=== PATIENT | female | born 1965 | race Caucasian/White ===

== ENCOUNTER → 2019-02-21 | Outpatient (CLI) | payer MEDICARE ==
--- NOTE | 2019-02-21 11:16 | RAD ---
EXAM DESCRIPTION: Knee,Right Complete CLINICAL HISTORY: 53 years, Female, M25.561/M25.551. Pain. COMPARISON: None TECHNIQUE: Four views of the right knee FINDINGS: No acute displaced fracture or dislocation is seen. Severe tricompartmental knee joint osteoarthrosis is present with joint space narrowing, subchondral sclerosis and bulky marginal osteophyte formation. Joint space narrowing is more pronounced along the lateral knee and patellofemoral compartments. No significant knee joint effusion. The soft tissues are unremarkable. IMPRESSION: 1. No acute displaced fracture or dislocation. 2. Severe right knee osteoarthrosis. Electronically signed by: Fransico Silvestre DO 02/21/2019 11:14 AM CDT
--- NOTE | 2019-02-21 11:18 | RAD ---
EXAM DESCRIPTION: Pelvis CLINICAL HISTORY: 53 years Female, M25.561/M25.551. Pain. COMPARISON: None. FINDINGS/IMPRESSION: AP view of the pelvis demonstrate slight superior tilt of the left pelvis. No acute displaced fracture or dislocation seen. Mild bilateral hip osteoarthrosis present with superior joint space narrowing and subchondral sclerosis. Mild degenerative changes of the symphysis pubis. Electronically signed by: Fransico Silvestre DO 02/21/2019 11:16 AM CDT
== END ==
LOC: RAD 08:59
PROVIDERS: ATTEND Orthopaedic Surgery
DX: M17.11 Unilateral primary osteoarthritis, right knee (principal); M16.0 Bilateral primary osteoarthritis of hip

== ENCOUNTER → 2019-03-08 | Outpatient (CLI) | payer MEDICARE | LOC: LAB.O 10:31 | PROVIDERS: ATTEND Orthopaedic Surgery | DX: Z01.818 Encounter for other preprocedural examination (principal) ==

== ENCOUNTER 2019-04-06 05:47 | Inpatient (IN) | payer MEDICARE ==
--- NOTE | 2019-03-28 14:44 | RAD ---
EXAM DESCRIPTION: Chest,2 Views CLINICAL HISTORY: PREOP EXAM COMPARISON: Previous study November 15, 2012 TECHNIQUE: PA/lateral FINDINGS: Healed right rib fractures. Heart size is prominent with normal pulmonary vascularity. No pleural effusion or pneumothorax. Lungs are clear with no consolidating infiltrate. Lateral view shows intact sternum and T-spine. IMPRESSION: No acute process is identified in the chest. Electronically signed by: Vance Maceod MD 03/28/2019 2:42 PM CDT
--- NOTE | 2019-04-01 08:47 | HP ---
CHIEF COMPLAINT: Right knee pain. HISTORY OF PRESENT ILLNESS: Kemi is a 53-year-old female with a history of right knee pain that has been going on and getting progressively worse. She has had knee arthroscopy, injection and anti-inflammatories. Unfortunately, she is having pain on a daily basis that keeps her from doing her activities. She says it is sharp at times, but constantly a dull ache. Aggravating factors includes activities and alleviating factors include rest and occasional anti- inflammatories. Because of failure of conservative measures, she has requested operative intervention. After discussing the risks, benefits and alternatives to that, she has given informed consent. PAST SURGICAL HISTORY: Please see her recent list as she is unable to fully elaborate on those today. MEDICATIONS: 1. Buspirone. 2. Metformin. 3. Propranolol. 4. Losartan. 5. Glipizide. 6. Hydrochlorothiazide. 7. Lipitor. 8. Toujeo. 9. Duloxetine. 10. Prilosec. 11. Zofran. 12. Hydrocodone. 13. Melatonin. PAIN CONTRACT: Dr. Fermin. ALLERGIES: SULFA, MORPHINE. CODE STATUS: Full code. IMMUNIZATIONS: Up to date. SOCIAL HISTORY: The patient does not drink, smoke or use any illicit drugs. FAMILY HISTORY: None pertinent to today's complaint. REVIEW OF SYSTEMS: Negative except as indicated in the History of Present Illness. HEENT: The patient reports no symptoms. RESPIRATORY: The patient reports no symptoms. CARDIOVASCULAR: The patient reports no symptoms. GASTROINTESTINAL: The patient reports no symptoms GENITOURINARY: The patient reports no symptoms. MUSCULOSKELETAL: Negative except as noted in History of Present Illness. SKIN: The patient reports no symptoms. NEUROLOGIC: The patient reports no symptoms. PHYSICAL EXAMINATION: VITAL SIGNS: Blood pressure 122/72. Pulse 73. Height 5'7". Weight 220 pounds. MENTAL STATUS: The patient is awake, alert, and is able to give a good history and participate in the physical. The patient is oriented to person, place and time. SKIN: Normal tone and turgor. HEENT: Normocephalic, atraumatic. Pupils equal, round and reactive. Mucosal membranes are moist. NECK: Normal range of motion. No thyromegaly, no lymphadenopathy. CHEST: Normal respiratory excursion. CARDIAC: Regular rate and rhythm. No murmurs, rubs or gallops. MUSCULOSKELETAL: The bilateral upper extremities show full active range of motion without pain. She has intact sensation and they are warm and well perfused. There is no deformity, no swelling and no malalignment. There is no crepitus with range of motion. The left lower extremity shows no significant pain with range of motion. She has intact sensation throughout the extremity. She has no malalignment, no deformity. She has negative varus and valgus stress testing and negative anterior and posterior drawer test. She has full range of motion of the hip. The right lower extremity shows full range of motion of the hip. She has a valgus deformity at the knee. She has slight laxity in valgus stress testing. She has no anterior/posterior laxity. Sensation is intact. It is warm and well perfused. She has crepitus throughout her range of motion. She has a mild to moderate effusion today. She has full range of motion in both ankles, digits and she has no malalignment distal to that. RADIOLOGY: My interpretation of the x-rays show severe arthritis. AP standing shows valgus deformity. ASSESSMENT: 1. Severe arthritis. PLAN: The plan at this point is for total knee arthroplasty. We have discussed the risks, benefits, and alternatives to that and the patient has given informed consent. [id number]
[2019-04-06] MEDS ORDERED: VANCOMYCIN HCL INJ 1,000 MG VIAL IVPB ONE ×3 (05:52→19:50)
[2019-04-06] MEDS ORDERED: SODIUM CHL 0.9% 100ML MINI-BAG 100 ML IVPB ONE (05:52)
[2019-04-06] MEDS ORDERED: LACTATED RINGERS 1,000 ML ONE ×2 (05:52→10:29)
[2019-04-06] MEDS ORDERED: TRANEXAMIC ACID 1,000 MG/10 ML VIAL ONE ×2 (05:52→05:53)
[2019-04-06] MEDS ORDERED: SODIUM CHLORIDE 0.9% 250ML 250 ML ONE ×3 (05:53→19:50)
[2019-04-06] MEDS ORDERED: ceFAZolin SODIUM 1 GM VIAL ONE ×2 (05:53→06:33)
[2019-04-06] MEDS ORDERED: SODIUM CHLORIDE 0.9% 100ML 100 ML IVPB ONE (05:53)
[2019-04-06] MEDS ORDERED: KETAMINE HCL 50 MG/ML SYG IV ONE (06:32)
[2019-04-06] MEDS ORDERED: fentaNYL CITRATE INJ 50 MCG/ML AMP ONE (06:32)
[2019-04-06] MEDS ORDERED: MIDAZOLAM INJ 5 MG/5 ML VIAL ONE (06:32)
[2019-04-06] MEDS ORDERED: ACETAMINOPHEN IV 1000MG 100 ML ONE (06:32)
[2019-04-06] MEDS: ceFAZolin SODIUM 1 GM VIAL ONE ×2 (07:51→08:50)
[2019-04-06] MEDS: BUPIVACAINE 0.5% 30 ML VIAL INJ ONE ×2 (07:51→08:45)
[2019-04-06] MEDS: BUPIVACAINE LIPOSOME 13.3 MG/ML VIAL INJ ONE ×2 (07:51→08:45)
[2019-04-06] MEDS: VANCOMYCIN HCL INJ 1,000 MG VIAL IVPB ONE ×2 (07:51→08:50)
[2019-04-06] MEDS ORDERED: BUPIVACAINE 0.5% 30 ML VIAL INJ ONE (07:55)
[2019-04-06] MEDS ORDERED: ONDANSETRON INJ 4 MG/2 ML VIAL IV PRN (09:24)
[2019-04-06] MEDS ORDERED: ALUMINUM & MAGNESIUM HYDROXIDE 30 ML UD PO PRN (09:24)
[2019-04-06] MEDS ORDERED: ACETAMINOPHEN 325 MG TAB PO PRN (09:24)
[2019-04-06] MEDS ORDERED: SODIUM CHLORIDE 0.9% (FLUSH) 10 ML SYG IV PRN (09:24)
[2019-04-06] MEDS ORDERED: TRANEXAMIC ACID INJ 1,000 MG in SODIUM CHLORIDE 0.9% 100ML 100 ML IVPB ONE (09:24)
[2019-04-06] MEDS ORDERED: MORPHINE SULFATE INJ 10 MG/ML VIAL IM PRN (09:24)
[2019-04-06] MEDS ORDERED: PROMETHAZINE HCL INJ 25 MG in SODIUM CHLORIDE 0.9% 50ML 50 ML IVPB PRN (09:24)
[2019-04-06] MEDS ORDERED: ACETAMINOPHEN 500 MG TAB PO PRN (09:24)
[2019-04-06] MEDS ORDERED: DEX 5% W/NACL 0.45% 1000ML 1,000 ML IVS PRN (09:24)
[2019-04-06] MEDS ORDERED: PROMETHAZINE HCL INJ 12.5 MG in SODIUM CHLORIDE 0.9% 50ML 50 ML IVPB PRN (09:24)
[2019-04-06] MEDS ORDERED: BISACODYL SUPPOSITORY 10 MG PR PRN (09:24)
[2019-04-06] MEDS ORDERED: NALOXONE HCL INJ 0.4 MG/ML VIAL IV PRN (09:24)
[2019-04-06] MEDS ORDERED: BENZOCAINE-MENTH LOZ (CEPACOL) 1 EA LOZ MT PRN (09:24)
[2019-04-06] MEDS ORDERED: MORPHINE SULFATE INJ 10 MG/ML VIAL IV PRN (09:24)
[2019-04-06] MEDS ORDERED: MAGNESIUM HYDROXIDE 30 ML UD PO PRN (09:24)
[2019-04-06] MEDS ORDERED: ZOLPIDEM TARTRATE 5 MG TAB PO PRN (09:24)
[2019-04-06] MEDS ORDERED: HYDROcodone 5MG/APAP 325MG 1 EA TAB PO PRN (09:24)
[2019-04-06] MEDS ORDERED: HYDROmorphone PCA 0.2 MG/ML 1 BAG BAG IVPB SCH (09:30)
[2019-04-06] MEDS ORDERED: PROPOFOL 200 MG/20 ML VIAL IV ONE (10:00)
[2019-04-06] MEDS ORDERED: METOCLOPRAMIDE HCL INJ 10 MG/2 ML VIAL IV ONE (10:00)
[2019-04-06] MEDS ORDERED: MAGNESIUM SULFATE INJ 1 GM/2 ML VIAL IVPB ONE (10:00)
[2019-04-06] MEDS ORDERED: ceFAZolin SODIUM 1 GM VIAL IVPB ONE (10:00)
[2019-04-06] MEDS ORDERED: raNITIdine HCL INJ 25 MG/ML VIAL IV ONE (10:00)
[2019-04-06] MEDS ORDERED: DEXAMETHASONE INJ 10 MG/ML VIAL IV ONE (10:00)
[2019-04-06] MEDS ORDERED: PHENYLEPHRINE INJ 1ML 10 MG/ML VIAL IV ONE (10:00)
[2019-04-06] MEDS ORDERED: SODIUM CHLORIDE 0.9% 50 ML VIAL INJ ONE (10:00)
--- NOTE | 2019-04-06 10:03 | OP ---
DATE OF PROCEDURE: 04/06/19 PREOPERATIVE DIAGNOSIS: 1. Arthritis of the right knee. POSTOPERATIVE DIAGNOSIS: 1. Arthritis of the right knee. PROCEDURE: 1. Total knee arthroplasty. SURGEON: Cahpo Palacios MD. PEDORTHIST: Dexter Dykes CST, SA-C. ANESTHESIA: General anesthesia. COMPLICATIONS: None. FINDINGS: Severe arthritis of the knee. INDICATION: Ms. Santiago has a long history of severe knee pain. It has been getting progressively worse. Because of the pain and ongoing nature without relief with conservative measures, she has requested operative intervention. After discussing the risks, benefits and alternatives to that, the patient has given informed consent for total knee arthroplasty. PROCEDURE: The patient was brought to the Operating Room and placed in supine position. General anesthesia was induced and the patient's leg was sterilely prepped and draped. Following prepping and draping, an anterior incision with standard medial parapatellar approach was used. The distal femur was exposed and using an intramedullary guide, the distal femoral cut was made. The anterior, posterior, and chamfer cuts were then made. The ACL was transected and the tibia was subluxed. Following subluxation of the tibia, the proximal tibial cut was made using the intramedullary guide. Following that, the patella was everted and the patella was cut by about 9 mm. Trial components were placed. The knee was reduced and taken through a range of motion. The knee tracked well and there was no evidence of instability of the patellar component. There was no varus/valgus or anterior/posterior laxity. The trial components were removed and the bony surfaces were thoroughly irrigated. Following irrigation of the bony surfaces, the final components were cemented into place. All excess cement was removed and the remaining cement was allowed to cure. The knee was again taken through a range of motion. It was stable without any laxity and had excellent patellar tracking. The wound was then very thoroughly irrigated and closure was performed using PDS to approximate the arthrotomy followed by closure of the subcutaneous tissues with a combination of running and interrupted Monocryl sutures. Sterile dressing was placed. The patient was awoken from anesthesia and taken to Recovery. POSTOPERATIVE PLAN: The patient will be weight-bearing as tolerated on postoperative day 1. COMPONENTS: [place] Triathlon knee, size 4 femur, size 4 tibia, 31 mm patellar button. [facility][id number]
[2019-04-06] MEDS: IV SET AND CAP CHANGE INJ INJ SCH (12:51)
[2019-04-06] MEDS ORDERED: ceFAZolin SODIUM 2 GRAMS PREMI 50 ML IVPB ONE ×2 (16:19→19:49)
[2019-04-06] MEDS: HYDROcodone 10MG/APAP 325MG 1 EA TAB PO PRN ×2 (16:21→21:41)
[2019-04-06] MEDS: CYCLOBENZAPRINE HCL 10 MG TAB PO PRN (16:21)
[2019-04-06] MEDS: ceFAZolin SODIUM 2 GRAMS PREMI 2 GM in PREMIX BAG 1 BAG IVPB SCH ×2 (16:21→23:16)
[2019-04-06] MEDS ORDERED: CELECOXIB 100 MG CAP PO SCH (17:00)
[2019-04-06] MEDS: VANCOMYCIN HCL INJ 1,000 MG in SODIUM CHLORIDE 0.9% 250ML 250 ML IVPB SCH (18:59)
[2019-04-06] MEDS ORDERED: CLOPIDOGREL 75 MG TAB PO ONE (19:37)
[2019-04-06] MEDS ORDERED: ENOXAPARIN SODIUM 30 MG/0.3 ML SYG SUBCU ONE (19:42)
[2019-04-06] MEDS ORDERED: DEXTROSE 50% 25 GM/50 ML SYG IV PRN (19:53)
[2019-04-06] MEDS ORDERED: GLUCAGON INJ 1 MG VIAL SUBCU PRN (19:53)
[2019-04-06] MEDS ORDERED: busPIRone HCL 5 MG TAB ONE (20:19)
[2019-04-06] MEDS ORDERED: PROPRANOLOL HCL 20 MG TAB ONE ×2 (20:19→21:34)
[2019-04-06] MEDS ORDERED: metFORMIN HCL 500 MG TAB ONE (20:19)
[2019-04-06] MEDS ORDERED: glipiZIDE 5 MG TAB ONE (20:19)
[2019-04-06] MEDS ORDERED: SODIUM CHLORIDE 0.45% 1000ML 1,000 ML IVS ONE (20:22)
[2019-04-06] MEDS ORDERED: MELATONIN 3 MG TAB ONE (20:22)
[2019-04-06] MEDS ORDERED: SODIUM CHLORIDE 0.45% 1000ML 1,000 ML IVS PRN (20:36)
[2019-04-06] MEDS ORDERED: NON-FORMULARY MEDICATION 1 EA MIS (Metformin Hcl [Metformin Hcl] 1,000 MG) PO SCH (21:00)
[2019-04-06] MEDS ORDERED: MELATONIN PO SCH (21:00)
[2019-04-06] MEDS ORDERED: NON-FORMULARY MEDICATION 1 EA MIS (Glipizide [Glipizide] 10 MG) PO SCH (21:00)
[2019-04-06] MEDS ORDERED: NON-FORMULARY MEDICATION 1 EA MIS (Propranolol Hcl [Propranolol Hcl] 40 MG) PO SCH (21:00)
[2019-04-06] MEDS ORDERED: NON-FORMULARY MEDICATION 1 EA MIS (Buspirone Hcl [Buspirone Hcl] 10 MG) PO SCH (21:00)
[2019-04-06] MEDS: INSULIN LISPRO 100 UNITS/ML PEN SUBCU SCH (21:15)
[2019-04-06] MEDS: INSULIN GLARGINE 75 UNIT SC SCH (21:16)
[2019-04-06] MEDS: ATORVASTATIN 10 MG TAB PO SCH (21:33)
[2019-04-06] MEDS: DOCUSATE CALCIUM 240 MG CAP PO SCH (21:33)
[2019-04-06] MEDS: ENOXAPARIN SODIUM 30 MG/0.3 ML SYG SUBCU SCH (23:16)
[2019-04-06] MEDS: traMADol HCL 50 MG TAB PO PRN (23:30)
[2019-04-07] MEDS ORDERED: SODIUM CHLORIDE 0.9% 50ML 50 ML ONE ×2 (00:34→00:36)
[2019-04-07] MEDS ORDERED: PROMETHAZINE HCL INJ 25 MG/ML VIAL ONE (00:36)
[2019-04-07] MEDS: CYCLOBENZAPRINE HCL 10 MG TAB PO PRN ×2 (00:43→16:07)
[2019-04-07] MEDS ORDERED: HYDROmorphone HCL INJ 2 MG/ML VIAL IV ONE (00:48)
[2019-04-07] MEDS: HYDROcodone 10MG/APAP 325MG 1 EA TAB PO PRN ×4 (02:31→20:02)
[2019-04-07] MEDS: traMADol HCL 50 MG TAB PO PRN ×2 (05:32→17:53)
[2019-04-07] MEDS: VANCOMYCIN HCL INJ 1,000 MG in SODIUM CHLORIDE 0.9% 250ML 250 ML IVPB SCH (05:55)
[2019-04-07] MEDS: OMEPRAZOLE CAP 20 MG CAP PO SCH (07:01)
[2019-04-07] MEDS ORDERED: metFORMIN HCL 500 MG TAB ONE (07:01)
[2019-04-07] MEDS ORDERED: PROPRANOLOL HCL 20 MG TAB ONE (07:01)
[2019-04-07] MEDS ORDERED: glipiZIDE 5 MG TAB ONE (07:01)
[2019-04-07] MEDS ORDERED: busPIRone HCL 5 MG TAB ONE (07:02)
[2019-04-07] MEDS ORDERED: ceFAZolin SODIUM 2 GRAMS PREMI 50 ML IVPB ONE (07:03)
[2019-04-07] MEDS: INSULIN LISPRO 100 UNITS/ML PEN SUBCU SCH ×4 (07:10→21:07)
[2019-04-07] MEDS: ceFAZolin SODIUM 2 GRAMS PREMI 2 GM in PREMIX BAG 1 BAG IVPB SCH (08:12)
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
[2019-04-07] MEDS ORDERED: CLOPIDOGREL 75 MG TAB PO SCH (09:00)
[2019-04-07] MEDS: busPIRone HCL 5 MG TAB PO SCH ×2 (09:36→14:07)
[2019-04-07] MEDS: MAGNESIUM OXIDE 400 MG TAB PO SCH (09:36)
[2019-04-07] MEDS: PROPRANOLOL HCL 20 MG TAB PO SCH ×2 (09:37→21:05)
[2019-04-07] MEDS: DULoxetine HCL 30 MG CAP PO SCH (09:38)
[2019-04-07] MEDS: LOSARTAN POTASSIUM 100 MG TAB PO SCH (09:38)
[2019-04-07] MEDS: glipiZIDE 5 MG TAB PO SCH ×2 (09:38→15:57)
[2019-04-07] MEDS: metFORMIN HCL 500 MG TAB PO SCH ×2 (09:38→16:01)
[2019-04-07] MEDS: hydroCHLOROthiazide 25 MG TAB PO SCH (09:39)
[2019-04-07] MEDS: INSULIN GLARGINE 75 UNIT SC SCH ×2 (09:46→21:07)
--- NOTE | 2019-04-07 09:53 | PN ---
DATE: 04/06/19 POSTOPERATIVE CHECK SUBJECTIVE: She is doing well. She has no pain. OBJECTIVE: Afebrile. Vital signs stable. Dressing is clean, dry and intact. ASSESSMENT: Status post total knee arthroplasty. PLAN: The plan at this point is for her to begin weightbearing as tolerated on postoperative day 1. #[id number] [facility]
--- NOTE | 2019-04-07 09:54 | PN ---
DATE: 04/07/19 SUBJECTIVE: She is doing well. She has no significant pain. OBJECTIVE: Afebrile. Vital signs stable. Dressing is clean, dry and intact. ASSESSMENT: Status post total knee arthroplasty. PLAN: The plan at this point is to begin weightbearing as tolerated today. #[id number] [facility]D
[2019-04-07] MEDS: ENOXAPARIN SODIUM 30 MG/0.3 ML SYG SUBCU SCH ×2 (10:26→23:50)
--- NOTE | 2019-04-07 11:26 | RAD ---
EXAM DESCRIPTION: Knee,Right 1 or 2 Views CLINICAL HISTORY: 53 years Female, TKA TECHNIQUE: 2 views of the right knee were performed. COMPARISON: None available. FINDINGS: The visualized bones appear well mineralized. Changes of total knee arthroplasty with surrounding soft tissue swelling and subcutaneous emphysema consistent with recent surgery. IMPRESSION: Right total knee arthroplasty with expected postsurgical changes in the surrounding soft tissues. Electronically signed by: Elisa Aguero MD 04/07/2019 11:25 AM CDT
[2019-04-07] MEDS ORDERED: POTASSIUM CHLORIDE 20 MEQ TAB PO ONE (13:27)
[2019-04-07] MEDS ORDERED: MAGNESIUM SULFATE PREMIX 2GM 2 GM in PREMIX BAG 1 BAG IVPB ONE (15:02)
[2019-04-07] MEDS ORDERED: MAGNESIUM SULFATE PREMIX 2GM 50 ML IVPB ONE (15:54)
--- NOTE | 2019-04-07 21:01 | PN ---
DATE: 04/07/19 SUPERVISING PHYSICIAN: Qasim Hodgson M.D. SUBJECTIVE: The patient had a little pain crisis last night requiring a little extra Dilaudid between her [employer] dosage. This morning she says that her pain is better controlled. I did again remind her that she needs to stay on top of it and request pain management, and not let it get so bad. She has had no nausea or vomiting. Blood sugar has been fairly well controlled. OBJECTIVE: VITAL SIGNS: Temperature 98..5, pulse 78, blood pressure 118/80, respirations 18, satting 98% on room air. GENERAL: The patient at time of exam was resting comfortably in the bedside chair. She was alert. CHEST: Lungs were clear to auscultation. HEART: Regular rate and rhythm. ABDOMEN: Soft, non-tender. Positive bowel sounds. EXTREMITIES: Right knee has a bulky Allen bandage pressure that is in place. Distally pulses are strong. Capillary refill is brisk. NEUROLOGIC: She is alert and oriented times three. LABORATORY: Postoperative H&H is 12.2 and 36.0. Chemistries show a low potassium at 3.0, otherwise electrolytes were within normal limits, however magnesium was low at 1.5. Blood sugar is between 69 and 246. ASSESSMENT: 1. Postoperative day #1 right total knee arthroplasty having failed to respond to outpatient treatment measures. Surgery was performed by Dr. Chapo Palacios. 2. Diabetes mellitus, type 2 on both oral and insulin therapy. 3. Electrolyte imbalance to include hypokalemia and hypomagnesemia. 4. Hypertension. 5. Osteoarthritis. 6. Depression. 7. Posttraumatic stress disorder. PLAN: Will continue to follow the patient through her physical therapy efforts and rehabilitation phase. Given that she has a low potassium and magnesium will go ahead and replace the potassium with oral and the magnesium with parenteral replacement. Again they did discuss [facility] as a possible plan for discharge. I have not heard anymore of that today. She does remain on sliding scale per protocol. Again we are encouraging good bronchial hygiene. Until we can transfer to outpatient management will continue to monitor and treat as needed. #[id number] [facility]D
[2019-04-07] MEDS: DOCUSATE CALCIUM 240 MG CAP PO SCH (21:05)
[2019-04-07] MEDS: MELATONIN 3 MG TAB PO SCH (21:06)
[2019-04-07] MEDS: ATORVASTATIN 10 MG TAB PO SCH (21:06)
[2019-04-08] MEDS: HYDROcodone 10MG/APAP 325MG 1 EA TAB PO PRN ×5 (02:15→19:33)
[2019-04-08] MEDS: CYCLOBENZAPRINE HCL 10 MG TAB PO PRN ×3 (05:10→20:56)
[2019-04-08] MEDS: OMEPRAZOLE CAP 20 MG CAP PO SCH (06:04)
[2019-04-08] MEDS: glipiZIDE 5 MG TAB PO SCH ×2 (06:04→16:30)
[2019-04-08] MEDS: INSULIN LISPRO 100 UNITS/ML PEN SUBCU SCH ×4 (07:12→20:55)
[2019-04-08] MEDS: metFORMIN HCL 500 MG TAB PO SCH ×2 (07:12→16:30)
[2019-04-08] MEDS: hydroCHLOROthiazide 25 MG TAB PO SCH (08:10)
[2019-04-08] MEDS: PROPRANOLOL HCL 20 MG TAB PO SCH ×2 (08:10→20:05)
[2019-04-08] MEDS: DULoxetine HCL 30 MG CAP PO SCH (08:10)
[2019-04-08] MEDS: MAGNESIUM OXIDE 400 MG TAB PO SCH (08:10)
[2019-04-08] MEDS: LOSARTAN POTASSIUM 100 MG TAB PO SCH (08:11)
[2019-04-08] MEDS: busPIRone HCL 5 MG TAB PO SCH ×2 (08:11→20:05)
[2019-04-08] MEDS: SODIUM CHLORIDE 0.9% (FLUSH) 10 ML SYG IV SCH ×2 (08:11→20:05)
[2019-04-08] MEDS: traMADol HCL 50 MG TAB PO PRN ×2 (08:40→16:29)
[2019-04-08] MEDS: ENOXAPARIN SODIUM 30 MG/0.3 ML SYG SUBCU SCH ×2 (10:09→22:37)
--- NOTE | 2019-04-08 10:55 | PN ---
SUPERVISING PHYSICIAN: Qasim Hodgson MD DATE: 04/08/19 SUBJECTIVE: The patient is lying in bed asleep. She awakens easily. She has no complaints of chest pain, shortness of breath, nausea or vomiting. She feels her rehab is going well and she will be discharged on Thursday to [facility]. OBJECTIVE: VITAL SIGNS: Temperature 98.8. Heart rate 72. Blood pressure 119/78. Respiratory rate 18. O2 saturation 94% on room air. RESPIRATORY: Essentially clear to auscultation bilaterally. CARDIAC: Regular rate and rhythm. GASTROINTESTINAL: Abdomen is soft, nondistended, nontender. Bowel sounds are positive. EXTREMITIES: Bilateral pedal pulses are palpable at +2. Her dressing to her right knee is dry and intact. She is presently on the CPM machine. NEUROLOGIC: Awake, alert and oriented times three. LABORATORY: Blood sugars have run between 69 and 162. All other labs and films have been reviewed via the EMR. ASSESSMENT: 1. Postoperative day #2 right total knee arthroplasty having failed to respond to outpatient treatment measures. Surgery was performed by Dr. Chapo Palacios, orthopedic surgeon. 2. Diabetes mellitus, type 2, on both oral and insulin therapy. 3. Electrolyte imbalance to include hypokalemia and hypomagnesemia. 4. Hypertension. 5. Osteoarthritis. 6. Depression. 7. Posttraumatic stress disorder. PLAN: We will continue present supportive care. Orthopedic issues will be per Dr. Chapo Palacios, orthopedic surgeon. She will continue with physical therapy for strengthening and conditioning. She will continue with that over the next two days and we will discharge from Acute Care status and she will be re- admitted to the [facility] program. She did have some electrolyte disturbances several days ago, so I will order some routine lab for in the morning to check those levels. We will continue to monitor the patient closely and follow as needed. #[id number] [facility]TDD
--- NOTE | 2019-04-08 13:43 | PN ---
DATE: 04/08/19 SUBJECTIVE: Ms. Santiago is doing pretty well. Her pain is well controlled. OBJECTIVE: Afebrile. Vital signs stable. Wound is clean. There are no signs or symptoms of infection. ASSESSMENT: Status post total knee arthroplasty. PLAN: The plan at this point is to continue with physical therapy for weightbearing as tolerated. #[id number] [facility]TDD
[2019-04-08] MEDS: DOCUSATE CALCIUM 240 MG CAP PO SCH (20:05)
[2019-04-08] MEDS: ATORVASTATIN 10 MG TAB PO SCH (20:05)
[2019-04-08] MEDS: INSULIN GLARGINE 75 UNIT SC SCH (20:54)
[2019-04-08] MEDS: TEMAZEPAM 15 MG CAP PO PRN (20:56)
[2019-04-08] MEDS: MELATONIN 3 MG TAB PO SCH (20:58)
[2019-04-09] MEDS: HYDROcodone 10MG/APAP 325MG 1 EA TAB PO PRN ×4 (03:58→20:23)
[2019-04-09] MEDS: glipiZIDE 5 MG TAB PO SCH ×2 (05:53→16:10)
[2019-04-09] MEDS: OMEPRAZOLE CAP 20 MG CAP PO SCH (05:54)
[2019-04-09] MEDS: INSULIN LISPRO 100 UNITS/ML PEN SUBCU SCH ×4 (07:28→21:09)
[2019-04-09] MEDS: CYCLOBENZAPRINE HCL 10 MG TAB PO PRN ×2 (08:01→17:48)
[2019-04-09] MEDS: PROPRANOLOL HCL 20 MG TAB PO SCH ×2 (08:01→20:24)
[2019-04-09] MEDS: busPIRone HCL 5 MG TAB PO SCH ×2 (08:02→20:24)
[2019-04-09] MEDS: LOSARTAN POTASSIUM 100 MG TAB PO SCH (08:02)
[2019-04-09] MEDS: metFORMIN HCL 500 MG TAB PO SCH ×2 (08:02→17:48)
[2019-04-09] MEDS: DULoxetine HCL 30 MG CAP PO SCH (08:02)
[2019-04-09] MEDS: hydroCHLOROthiazide 25 MG TAB PO SCH (08:03)
[2019-04-09] MEDS: MAGNESIUM OXIDE 400 MG TAB PO SCH (08:03)
[2019-04-09] MEDS: SODIUM CHLORIDE 0.9% (FLUSH) 10 ML SYG IV SCH ×2 (08:03→21:22)
[2019-04-09] MEDS: IV SET AND CAP CHANGE INJ INJ SCH (08:04)
[2019-04-09] MEDS ORDERED: MAGNESIUM SULFATE PREMIX 2GM 2 GM in PREMIX BAG 1 BAG IVPB ONE (08:30)
[2019-04-09] MEDS ORDERED: POTASSIUM CHLORIDE 20 MEQ TAB PO ONE (08:31)
[2019-04-09] MEDS ORDERED: MAGNESIUM SULFATE PREMIX 2GM 50 ML IVPB ONE (09:33)
[2019-04-09] MEDS: ENOXAPARIN SODIUM 30 MG/0.3 ML SYG SUBCU SCH ×2 (11:43→22:02)
--- NOTE | 2019-04-09 19:45 | PN ---
DATE: 04/09/19 SUPERVISING PHYSICIAN: Qasim Hodgson M.D. SUBJECTIVE: The patient is sitting up in her chair. She has no complaints. Denies chest pain, nausea, vomiting, diarrhea, constipation or shortness of breath. She feels like her physical therapy is progressing without any problems. OBJECTIVE: VITAL SIGNS: Temperature 98.9, heart rate 98, blood pressure 120/84, respiratory rate 18, O2 sat 94% on room air. RESPIRATORY: Essentially clear to auscultation bilaterally. CARDIAC: Regular rate and rhythm. GASTROINTESTINAL: Abdomen is soft, nondistended, non-tender. Bowel sounds are positive. EXTREMITIES: Bilateral pedal pulses are palpable at +2. There is an island dressing to her right knee that is dry and intact. NEUROLOGIC: She is awake, alert and oriented times three. LABORATORY: Hemoglobin and hematocrit are 12.3 and 35.9. Blood sugars have run between 135 and 179. Sodium is slightly low at 132 with potassium 3.1, chloride 95 and magnesium 1.5. All other labs and films have been reviewed via the EMR. ASSESSMENT: 1. Postoperative day #3 right total knee arthroplasty having failed to respond to outpatient treatment measures. Surgery was performed by Dr. Chapo Palacios, orthopedic surgeon. 2. Diabetes mellitus, type 2, on both oral and insulin therapy. 3. Electrolyte imbalance that includes hypokalemia and hypomagnesemia. 4. Hypertension. 5. Osteoarthritis. 6. Depression. 7. Posttraumatic stress disorder. PLAN: We will continue present supportive care. Orthopedic issues will be per Dr. Chapo Palacios, orthopedic surgeon. She will continue with her physical therapy for strengthening and conditioning. Plan for discharge tomorrow to [facility]. Her potassium and magnesium were slightly low today, so I have given her some supplementation. Will recheck her labs in the morning. I have encouraged good pulmonary hygiene. Will monitor closely and follow as needed. #[id number] [facility]TDD
--- NOTE | 2019-04-09 19:58 | PN ---
DATE: 04/09/19 SUBJECTIVE: She is doing well. She is having no pain. She has been up today. OBJECTIVE: She is afebrile. Vital signs are stable. Wound is clean. There are no signs or symptoms of infection. ASSESSMENT: 1. Status post total knee arthroplasty. PLAN: The plan is to discharge for [facility] status then to [place] tomorrow. She will have followup with us in approximately 2 weeks and has been instructed to return here should any change in her condition occur. [facility][id number] [facility]
[2019-04-09] MEDS: DOCUSATE CALCIUM 240 MG CAP PO SCH (20:24)
[2019-04-09] MEDS: MELATONIN 3 MG TAB PO SCH (20:24)
[2019-04-09] MEDS: ATORVASTATIN 10 MG TAB PO SCH (20:24)
[2019-04-09] MEDS: TEMAZEPAM 15 MG CAP PO PRN (20:24)
[2019-04-09] MEDS ORDERED: MAGNESIUM HYDROXIDE 30 ML UD PO ONE (21:00)
[2019-04-09] MEDS ORDERED: BISACODYL SUPPOSITORY 10 MG PR ONE (21:00)
[2019-04-09] MEDS: INSULIN GLARGINE 75 UNIT SC SCH (21:06)
[2019-04-10] MEDS: HYDROcodone 10MG/APAP 325MG 1 EA TAB PO PRN ×2 (03:51→08:14)
[2019-04-10] MEDS: glipiZIDE 5 MG TAB PO SCH (06:30)
[2019-04-10] MEDS: OMEPRAZOLE CAP 20 MG CAP PO SCH (06:30)
[2019-04-10] MEDS: INSULIN LISPRO 100 UNITS/ML PEN SUBCU SCH (07:11)
[2019-04-10] MEDS: metFORMIN HCL 500 MG TAB PO SCH (07:36)
[2019-04-10] MEDS: PROPRANOLOL HCL 20 MG TAB PO SCH (08:12)
[2019-04-10] MEDS: busPIRone HCL 5 MG TAB PO SCH (08:12)
[2019-04-10] MEDS: LOSARTAN POTASSIUM 100 MG TAB PO SCH (08:14)
[2019-04-10] MEDS: DULoxetine HCL 30 MG CAP PO SCH (08:14)
[2019-04-10] MEDS: hydroCHLOROthiazide 25 MG TAB PO SCH (08:14)
[2019-04-10] MEDS: SODIUM CHLORIDE 0.9% (FLUSH) 10 ML SYG IV SCH (08:15)
[2019-04-10] MEDS: MAGNESIUM OXIDE 400 MG TAB PO SCH (08:15)
[2019-04-10 09:06] VITALS: O2SAT 98
[2019-04-10 09:17] VITALS: BP 118/81; TEMP 97.3
--- NOTE | 2019-04-11 08:53 | DS ---
SUPERVISING PHYSICIAN: Qasim Hodgson MD DISCHARGE DIAGNOSIS: 1. Postoperative day #4 right total knee arthroplasty having failed to respond to outpatient treatment measures. Surgery was performed by Dr. Chapo Palacios, orthopedic surgeon. 2. Diabetes mellitus, type 2, on both oral and insulin therapy. 3. Electrolyte imbalance that includes hypokalemia and hypomagnesemia. 4. Hypertension. 5. Osteoarthritis. 6. Depression. 7. Posttraumatic stress disorder. HISTORY OF PRESENT ILLNESS: This is a 53-year-old female patient with a longstanding history of right knee pain that has progressively worsened over the last year or so. She has had multiple attempts at outpatient treatment measures including arthroscopy, injections, anti-inflammatory medications. None of the treatments have resulted in any significant relief of pain and actually inhibiting her activities of daily living. She has failed conservative measures and has requested Dr. Chapo Palacios, orthopedic surgeon, for operative intervention. She was admitted to the hospital for operative intervention. She was admitted to the hospital for elective right total knee arthroplasty. She had no intraoperative complications. She was seen in consult on the Medical/Surgical Floor. HOSPITAL COURSE: The patient had good pain control and completed her physical therapy here in the hospital for strengthening and conditioning. It was felt that she would have a better outpatient recovery if she went to [facility]. She lives in [place]. She will be discharged today to [facility] program. LABORATORY: CBC on admission was unremarkable. Postoperatively, her hemoglobin and hematocrit were 12.2 and 36. Her blood sugars ran between 91 and 246 with the majority of her blood sugars around 145 to 170. Her metabolic panel initially showed a potassium that was 3.2. It went down as low as 3.0 and she was given supplementation. Today, it is 3.3. She will again get supplementation today. Her magnesium was low at 1.5. She received supplementation and today it is 1.8. Her urinalysis was positive for urine nitrites. She was given Rocephin in the hospital. Her urine culture Klebsiella pneumoniae and was sensitive to ceftriaxone. She will continue on that in [facility] in [place] for 2 additional days. Her urine drug screen was negative. Her x-rays are as per the EMR. DISCHARGE PLAN: The patient will be discharged to [facility]. She is in stable condition. She is to resume her diet of 1800 calorie ADA diet. She is to increase her activity as tolerated. She is to followup with Dr. Chapo Palacios after discharge from [facility] program in [place]. In addition to her routine medications, she will have cyclobenzaprine, 5 additional days of Xarelto and 2 additional days of Rocephin. She is to return to the hospital or followup with Dr. Palacios for any problems or complications. DISCHARGE MEDICATIONS: 1. Hydrocodone. 2. Buspirone. 3. Losartan. 4. Metformin. 5. Hydrochlorothiazide. 6. Propranolol. 7. Omeprazole. 8. Melatonin. 9. Glipizide. 10. Duloxetine. 11. Atorvastatin. 12. Toujeo insulin. 13. Cyclobenzaprine. 14. Milk of Magnesia. 15. Xarelto. 16. Rocephin. #[id number] [facility]
== END 2019-04-10 12:00 | disposition swing bed (61) | DRG 470 ==
LOC: AMB 05:47 → MS 11:00
PROVIDERS: ADMIT Orthopaedic Surgery; ATTEND Nurse Practitioner Acute Care
PROC: 3E0T3BZ Introduction of Anesthetic Agent into Peripheral Nerves and Plexi, Percutaneous Approach (ICD-10-PCS; 2019-04-06)
PROC: 3E0T33Z Introduction of Anti-inflammatory into Peripheral Nerves and Plexi, Percutaneous Approach (ICD-10-PCS; 2019-04-06)
PROC: 0SRC0J9 Replacement of Right Knee Joint with Synthetic Substitute, Cemented, Open Approach (ICD-10-PCS; principal; 2019-04-06 06:57)
DX: M17.11 Unilateral primary osteoarthritis, right knee (principal); E87.6 Hypokalemia; G89.18 Other acute postprocedural pain; E83.42 Hypomagnesemia; E11.9 Type 2 diabetes mellitus without complications; I10 Essential (primary) hypertension; F32.9 Major depressive disorder, single episode, unspecified; F43.10 Post-traumatic stress disorder, unspecified; E66.9 Obesity, unspecified; Z88.2 Allergy status to sulfonamides; Z88.5 Allergy status to narcotic agent; Z79.4 Long term (current) use of insulin; Z79.891 Long term (current) use of opiate analgesic; Z79.899 Other long term (current) drug therapy; Z68.34 Body mass index [BMI] 34.0-34.9, adult

== ENCOUNTER → 2019-07-21 | Outpatient (CLI) | payer MEDICARE ==
--- NOTE | 2019-07-21 12:35 | RAD ---
4 radiographs right shoulder Indication: PAIN Comparison: None. Impression: No acute fracture or dislocation. Severe glenohumeral joint osteoarthritis with complete joint space loss, cortical remodeling, and large humeral head osteophyte formation. Slight posterior subluxation humeral head in relation to the glenoid. Electronically signed by: Van Perez MD 07/21/2019 12:34 PM [facility]
== END ==
LOC: RAD 10:55
PROVIDERS: ATTEND Orthopaedic Surgery
DX: M19.011 Primary osteoarthritis, right shoulder (principal); S43.081A Other subluxation of right shoulder joint, initial encounter; M25.711 Osteophyte, right shoulder

== ENCOUNTER → 2019-10-27 | Outpatient (CLI) | payer MEDICARE ==
--- NOTE | 2019-10-27 09:19 | RAD ---
Frontal and lateral views of the right knee. Indication: KNEE PAIN Comparison: April 06, 2019 Impression: Right total knee arthroplasty redemonstrated but with an intramedullary femoral fabian as well as distal interlocking screws which are new compared to the prior. In addition, there is a new markedly comminuted fractures involving the distal femoral metaphysis extending into the superior margins of the lateral femoral condyle. Mild valgus angulation at the fracture site. The fracture is segmental with a superolateral component displaced solid posteriorly and laterally. The distal component is medially displaced by up to 4 mm. Moderate size knee effusion. The bones are osteopenic. Electronically signed by: Van Perez MD 10/27/2019 9:18 AM CDT
== END ==
LOC: RAD 08:55
PROVIDERS: ATTEND Orthopaedic Surgery
DX: S72.351A Displaced comminuted fracture of shaft of right femur, initial encounter for closed fracture (principal); M25.461 Effusion, right knee; M85.861 Other specified disorders of bone density and structure, right lower leg

== ENCOUNTER → 2019-11-25 | Outpatient (CLI) | payer MEDICARE ==
--- NOTE | 2019-11-25 09:49 | RAD ---
EXAM DESCRIPTION: Right femur/knee, 2 radiographs CLINICAL HISTORY: Fracture of the distal femur FINDINGS/ IMPRESSION: Comparison 10/27/2019 Supracondylar distal femoral comminuted fracture with the same degree of comminution and fracture displacement. Same degree of overlap and angulation. Smoothing of the margins of the fragments. No significant callus formation or solid osseous bridging. No periprosthetic osteolysis No periprosthetic fracture or osteolysis of the tibia. No fracture of the fibula or patella Electronically signed by: Qasim Wells MD 11/25/2019 9:47 AM CDT
== END ==
LOC: RAD 09:11
PROVIDERS: ATTEND Orthopaedic Surgery
DX: M97.11XD Periprosthetic fracture around internal prosthetic right knee joint, subsequent encounter (principal)

== ENCOUNTER → 2020-01-06 | Outpatient (CLI) | payer MEDICARE ==
--- NOTE | 2020-01-06 16:07 | RAD ---
EXAM: Knee,Right 1 or 2 Views CLINICAL HISTORY: FRACTURE OF DISTAL END OF FEMUR RIGHT COMPARISON STUDY: Right knee x-rays from November 25, 2019 TECHNICAL: 3 x-ray images of the right knee FINDINGS: The right knee arthroplasty is unchanged. The intramedullary fabian is unchanged. The fracture through the distal aspect of the femur has similar appearance to the previous study. No bridging callus but ongoing remodeling at the fracture site. No hardware failure or new fracture. IMPRESSION: 1. Healing right distal femur fracture. 2. Intact right knee arthroplasty. Electronically signed by: Hilton Alexander MD 01/06/2020 4:05 PM CDT
== END ==
LOC: RAD 09:04
PROVIDERS: ATTEND Orthopaedic Surgery
DX: S72.491D Other fracture of lower end of right femur, subsequent encounter for closed fracture with routine healing (principal); M97.11XD Periprosthetic fracture around internal prosthetic right knee joint, subsequent encounter; Z96.651 Presence of right artificial knee joint

== ENCOUNTER → 2020-01-25 | Outpatient (CLI) | payer MEDICARE ==
--- NOTE | 2020-01-25 15:42 | RAD ---
EXAM DESCRIPTION: Knee,Right 1 or 2 Views CLINICAL HISTORY: 54 years Female, FRACTURE OF DISTAL END OF FEMUR RIGHT COMPARISON: January 06, 2020 FINDINGS: 2 views of the right knee again show postoperative changes in the distal right femur and right knee only partially visualized with this exam. No hardware complication. Slightly displaced periprosthetic fractures proximal to the femoral component of the right knee prosthesis which remains largely nonunited and not significantly changed from January 06, 2020. No new abnormality. IMPRESSION: Periprosthetic fracture distal right femur, non or partially united and unchanged from January 06, 2020. Electronically signed by: Freddy Grace MD 01/25/2020 3:41 PM CDT
== END ==
LOC: RAD 14:07
PROVIDERS: ATTEND Orthopaedic Surgery
DX: M97.11XD Periprosthetic fracture around internal prosthetic right knee joint, subsequent encounter (principal); S72.451K Displaced supracondylar fracture without intracondylar extension of lower end of right femur, subsequent encounter for closed fracture with nonunion; Z96.651 Presence of right artificial knee joint

== ENCOUNTER → 2020-02-10 | Outpatient (CLI) | payer MEDICARE ==
--- NOTE | 2020-02-10 10:43 | RAD ---
Frontal and lateral views of the right knee. Indication: FRACTURE OF DISTAL END OF FEMUR Comparison: January 25, 2020. Impression: Redemonstrated is a periprosthetic fracture of the distal femoral metadiaphysis with mild valgus angulation at the fracture site. Alignment is stable. No significant callus formation compared to the prior. The fracture remains ununited. Electronically signed by: Van Perez MD 02/10/2020 10:42 AM CDT
== END ==
LOC: RAD 09:00
PROVIDERS: ATTEND Orthopaedic Surgery
DX: M97.11XD Periprosthetic fracture around internal prosthetic right knee joint, subsequent encounter (principal); S72.451K Displaced supracondylar fracture without intracondylar extension of lower end of right femur, subsequent encounter for closed fracture with nonunion

== ENCOUNTER → 2020-04-06 | Outpatient (CLI) | payer MEDICARE ==
--- NOTE | 2020-04-06 17:16 | RAD ---
EXAM DESCRIPTION: Knee,Right 1 or 2 Views CLINICAL HISTORY: PERIPROSTHETIC FX COMPARISON: 10 February 2020 TECHNIQUE: 2 views right FINDINGS: A long stem femoral component is observed in the right total knee arthroplasty. A fracture is observed in the distal shaft. Callus formation is observed at the fracture site. No evidence of loosening or infection is detected. IMPRESSION: 1. Long stem right total knee arthroplasty. 2. Healing fracture of the distal shaft of the right femur. Electronically signed by: Naveen Vernon MD 04/06/2020 5:15 PM CDT
== END ==
LOC: RAD 09:50
PROVIDERS: ATTEND Orthopaedic Surgery
DX: M97.11XD Periprosthetic fracture around internal prosthetic right knee joint, subsequent encounter (principal); Z96.651 Presence of right artificial knee joint